=== PATIENT | male | born 1990 | race Caucasian/White ===

== ENCOUNTER 2019-06-02 21:20 | Emergency (ER) | payer OTHER, SELFPAY ==
[2019-06-02 21:34] VITALS: BP 159/101; PULSE 81; RESP 35; TEMP 36.2; O2SAT 100; BMI 27.8
[2019-06-02 22:07] LABS: Acetaminophen < 10 ug/mL (10-30); Alanine Aminotransferase 183 IU/L (<50); Albumin 5.2 g/dL (3.5-5.0); Albumin Globulin Ratio 1.5 (1.0-2.8); Alkaline Phosphatase 128 U/L (38-126); Aspartate Aminotransferase 227 IU/L (17-59); BUN Creatinine Ratio 13.5 (6-22); Bilirubin Total 0.6 mg/dL (0.2-1.3); Blood Urea Nitrogen 12 mg/dL (9-20); Calcium 9.6 mg/dL (8.4-10.2); Carbon Dioxide 19 mmol/L (22-32); Chloride 104 mmol/L (98-107); Estimated Glomerular Filt Rate > 60.0 mL/min (>60); Ethanol (ETOH) 264 mg/dL; Globulin 3.5 g/dL (1.7-4.1); Glucose 106 mg/dL (70-100); HEMOLYSIS < 15 (0-50); Potassium 3.5 mmol/L (3.4-5.1); Sodium 143 mmol/L (137-145); Total Protein 8.7 g/dL (6.3-8.2)
[2019-06-02 22:16] LABS: Add Manual Diff / Slide Review NO; Basophils Absolute Auto 100 /uL (0-100); Basophils Percent Auto 1.9 % (0-2); Eosinophils Absolute Auto 0 /uL (0-450); Eosinophils Percent Auto 0.4 % (2-4); Hematocrit 44.4 % (41-53); Hemoglobin 15.5 g/dL (13.5-17.5); Lymphocytes Absolute Auto 2800 /uL (1100-4500); Lymphocytes Percent Auto 43.7 % (25-40); Mean Corpuscular HGB Conc 34.9 % (30-36); Mean Corpuscular Hemoglobin 33.6 PG (26-34); Mean Corpuscular Volume 96.4 fL (80-100); Monocytes Absolute Auto 900 /uL (0-900); Monocytes Percent Auto 13.7 % (3-14); Neutrophils Absolute Auto 2600 /uL (1500-7000); Neutrophils Percent Auto 40.3 % (50-75); Platelet Count 236 X10^3/uL (150-400); Red Blood Cell Count 4.61 X10^6/uL (4.5-5.9); Red Cell Distribution Width 13.3 % (11.6-14.8); White Blood Cell Count 6.5 X10^3/uL (4.5-11.0)
[2019-06-02 22:25] VITALS: BP 141/95; PULSE 81; RESP 20; O2SAT 100
[2019-06-02 22:34] LABS: Free T4, Direct Thyroxine 1.07 ng/dL (0.78-2.19)
[2019-06-02 22:48] LABS: Thyroid Stimulating Hormone 3.37 uIU/mL (0.47-4.68)
--- NOTE | 2019-06-02 23:05 | ED_ITS ---
HPI - Anxiety General Chief Complaint: Anxiety Stated Complaint: anxiety Time Seen by Provider: 06/02/19 21:50 Source: patient and family Mode of arrival: Family Vehicle Limitations: no limitations History of Present Illness HPI narrative: The patient is agitated, angry upon arrival. He has had alcohol. He has apparently been watching TV, growing increasingly agitated over the bad news about the COVID-19 pandemic. He has had several episodes of syncope. Apparently has been hyperventilating, to the point where he develops perioral numbness, clinching his arms, and then syncope. I ordered a workup on him after arrival, by the time I interviewed him symptoms of much resolved. He has recently been laid off from work because of the COVID economic and social issues. He has no prior history of anxiety. He is on no medications for anxiety or depression. He was seen earlier [facility], with similar complaints. The doctor came to the conclusion he was having anxiety. He is now having syncope. He has not been ill. The family remains isolated. He has had no headache, cough or fever. He denies drug use. He has no psychosis or hallucinations. He has no suicidal thoughts. He has no mental health illness. Related Data Previous Rx's Medication Instructions Recorded lorazepam [Ativan] 1 mg PO Q6H PRN #10 tab 06/02/19 Review of Systems Review of Systems ROS Unobtainable: All systems reviewed & are unremarkable except as noted in HPI and below Constitutional Constitutional: Denies chills, Denies fever(s), Denies headache(s), Denies lethargy and Denies weakness Eyes Eyes: Denies change in vision and Denies eye discharge ENT Ears, Nose, Mouth, and Throat: Denies change in voice, Denies vertigo, Denies dizziness, Denies headache(s), Denies neck pain and Denies sore throat Cardiovascular Cardiovascular: Denies chest pain, Reports syncope, Denies lightheadedness, Denies palpitations, Denies dyspnea, Denies dyspnea on exertion and Denies orthopnea Respiratory Respiratory: Denies cough, Denies dyspnea, Denies dyspnea on exertion and Denies wheezing Gastrointestinal Gastrointestinal: Denies abdominal pain, Denies diarrhea, Denies nausea and Denies vomiting Musculoskeletal Musculoskeletal: Denies neck pain Integumentary/Breasts Skin/Breast: Denies erythema, Denies rash and Denies wounds Neurologic Neurologic: Denies confusion, Denies vertigo, Denies dizziness, Reports syncope, Denies headache(s) and Denies weakness Psychiatric Psychiatric: Denies confusion Endocrine Endocrine: Denies palpitations Allergic/Immunologic Allergic/Immunologic: Denies wheezing Patient History Medical History (Updated 06/03/19 @ 03:04 by Munir Pereyra MD) No history of major surgery within 1 month (Acute) No significant past medical history (Acute) Social History Smoking Status: Current every day smoker Smoking Status: Current every day smoker tobacco type: vaping alcohol intake frequency: 0-2 drinks per day Alcohol type: wine Substance Use Type: does not use Exam Initial Vital Signs Initial Vital Signs: Vital Signs Temperature 97.2 F L 06/02/19 21:34 Pulse Rate 81 06/02/19 21:34 Respiratory Rate 35 H 06/02/19 21:34 Blood Pressure 159/101 H 06/02/19 21:34 Pulse Oximetry 100 06/02/19 21:34 Const General: cooperative and well developed Nutritional Appearance: well nourished [facility] Head: normocephalic and atraumatic Nose: external nose normal Face and sinus: sinuses nontender, face symmetric, no sinus tenderness and No dry mucous membranes Mouth: oral mucosae normal and moist mucous membranes Teeth and gingiva: dentition normal Throat: tonsils normal and uvula midline Eyes General: appearance normal, both eyes and all related structures Eyelids: eyelids normal Conjunctivae: conjunctivae normal Sclera: sclerae normal Pupils: PERRL EOM: EOM intact bilaterally Neck Neck: normal visual inspection, trachea midline, No lymphadenopathy and No midline deformity Thyroid: thyroid normal Lymphatic: No lymphedema Resp Effort & Inspection: normal respiratory effort, able to speak in complete sentences, no respiratory distress and no use of accessory muscles Auscultation: clear to auscultation bilaterally, no rales, no rhonchi and no wheezes Cardio Rate: regular rate Rhythm: regular rhythm Heart Sounds: S1 normal, S2 normal, no click, no gallops, no murmurs and no rubs Pulses: normal peripheral pulses GI Inspection: non-distended Palpation: soft, no hepatosplenomegaly and No tender Auscultation: normal bowel sounds Skin General: no rashes or lesions noted and No mottling Neuro General: alert, oriented x3, gait normal and no focal motor deficits Speech: speech normal Psych Appearance: well kempt Mental Status: mental status grossly normal Mood: congruent mood Attitude: cooperative Thought Content: normal and suicidality Judgment: judgment good Course Course Course Narrative: The patient's attitude has improved significantly since arrival. We had a conversation about however deal with the stresses. I recommended focus on good diet, physical exertion, regular workouts, finding jobs around his home, and frequent discussion with his . He should be re-evaluated if he develops thoughts of self-harm. I will prescribe a a few Ativan tablets to use if necessary. Orders Ordered: ED Orders 06/02/19 21:35 Acetaminophen Stat Complete Blood Count AUTO DIFF Stat Comprehensive Metabolic Panel Stat Ethanol (ETOH) Stat Free T4, Direct Thyroxine Stat Salicylate Stat Thyroid Stimulating Hormone Stat 06/02/19 23:00 Urine Drug Screen, Rapid Stat Discontinued Medications Lorazepam (Ativan) 1 mg PO NOW ONE Stop: 06/02/19 23:56 Last Admin: 06/03/19 00:02 Dose: 1 mg [facility] Vital Signs Vital signs: Vital Signs - 8 hr 06/02/19 21:34 06/02/19 22:25 06/02/19 23:26 Temperature 97.2 F L Pulse Rate 81 81 81 Respiratory Rate 35 H 20 16 Blood Pressure 159/101 H Blood Pressure [Right Arm] 141/95 H 133/91 H Pulse Oximetry 100 100 99 MDM - Anxiety Medical Records Attestation: I reviewed the patient's medical records. Lab Data Attestation: I reviewed the patient's lab results. Result diagrams: 06/02/19 21:35 06/02/19 21:35 Labs: Lab Results 06/02/19 06/02/19 06/02/19 Range/Units 21:35 21:35 21:35 WBC 6.5 (4.5-11.0) X10^3/uL RBC 4.61 (4.5-5.9) X10^6/uL Hgb 15.5 (13.5-17.5) g/dL Hct 44.4 (41-53) % MCV 96.4 (80-100) fL MCH 33.6 (26-34) PG MCHC 34.9 (30-36) % RDW 13.3 (11.6-14.8) % Plt Count 236 (150-400) X10^3/uL Neut % (Auto) 40.3 L (50-75) % Lymph % (Auto) 43.7 H (25-40) % [place] % (Auto) 13.7 (3-14) % Eos % (Auto) 0.4 L (2-4) % Baso % (Auto) 1.9 (0-2) % Neut # (Auto) 2600 (4075-8801) /uL Lymph # (Auto) 2800 (3811-9757) /uL [place] # (Auto) 900 (0-900) /uL Eos # (Auto) 0 (0-450) /uL Baso # (Auto) 100 (0-100) /uL Sodium 143 (137-145) mmol/L Potassium 3.5 (3.4-5.1) mmol/L Chloride 104 (98-107) mmol/L Carbon Dioxide 19 L (22-32) mmol/L BUN 12 (9-20) mg/dL Creatinine 0.89 (0.66-1.25) mg/dL Estimated GFR > 60.0 (>60) mL/min BUN/Creatinine Ratio 13.5 (6-22) Glucose 106 H (70-100) mg/dL Calcium 9.6 (8.4-10.2) mg/dL Total Bilirubin 0.6 (0.2-1.3) mg/dL AST 227 H (17-59) IU/L ALT 183 H (<50) IU/L Alkaline Phosphatase 128 H (38-126) U/L Total Protein 8.7 H (6.3-8.2) g/dL Albumin 5.2 H (3.5-5.0) g/dL Globulin 3.5 (1.7-4.1) g/dL Albumin/Globulin Ratio 1.5 (1.0-2.8) TSH 3.37 (0.47-4.68) uIU/mL Free T4 1.07 (0.78-2.19) ng/dL Salicylates 1.0 (<20) mg/dL U Opiates 300ng/mL cut (Negative) Ur Oxycodone Screen (Negative) Urine Methadone Screen (Negative) Acetaminophen < 10 L (10-30) ug/mL Ur Barbiturates Screen (Negative) U Tricyclic Antidepress (Negative) Ur Phencyclidine Scrn (Negative) Ur Amphetamines Screen (Negative) U Methamphetamines Scrn (Negative) Ur MDMA Scrn (Ecstasy) (Negative) U Benzodiazepines Scrn (Negative) Urine Cocaine Screen (Negative) U Marijuana (THC) Screen (Negative) Ethyl Alcohol 264 H ( - 10) mg/dL 06/02/19 Range/Units 23:00 WBC (4.5-11.0) X10^3/uL RBC (4.5-5.9) X10^6/uL Hgb (13.5-17.5) g/dL Hct (41-53) % MCV (80-100) fL MCH (26-34) PG MCHC (30-36) % RDW (11.6-14.8) % Plt Count (150-400) X10^3/uL Neut % (Auto) (50-75) % Lymph % (Auto) (25-40) % [place] % (Auto) (3-14) % Eos % (Auto) (2-4) % Baso % (Auto) (0-2) % Neut # (Auto) (9366-2572) /uL Lymph # (Auto) (5451-1528) /uL [place] # (Auto) (0-900) /uL Eos # (Auto) (0-450) /uL Baso # (Auto) (0-100) /uL Sodium (137-145) mmol/L Potassium (3.4-5.1) mmol/L Chloride (98-107) mmol/L Carbon Dioxide (22-32) mmol/L BUN (9-20) mg/dL Creatinine (0.66-1.25) mg/dL Estimated GFR (>60) mL/min BUN/Creatinine Ratio (6-22) Glucose (70-100) mg/dL Calcium (8.4-10.2) mg/dL Total Bilirubin (0.2-1.3) mg/dL AST (17-59) IU/L ALT (<50) IU/L Alkaline Phosphatase (38-126) U/L Total Protein (6.3-8.2) g/dL Albumin (3.5-5.0) g/dL Globulin (1.7-4.1) g/dL Albumin/Globulin Ratio (1.0-2.8) TSH (0.47-4.68) uIU/mL Free T4 (0.78-2.19) ng/dL Salicylates (<20) mg/dL U Opiates 300ng/mL cut Negative (Negative) Ur Oxycodone Screen Negative (Negative) Urine Methadone Screen Negative (Negative) Acetaminophen (10-30) ug/mL Ur Barbiturates Screen Negative (Negative) U Tricyclic Antidepress Negative (Negative) Ur Phencyclidine Scrn Negative (Negative) Ur Amphetamines Screen Negative (Negative) U Methamphetamines Scrn Negative (Negative) Ur MDMA Scrn (Ecstasy) Negative (Negative) U Benzodiazepines Scrn Negative (Negative) Urine Cocaine Screen Negative (Negative) U Marijuana (THC) Screen Negative (Negative) Ethyl Alcohol ( - 10) mg/dL Urine Dip Bedside Urine Glucose Negative Bedside Urine Bilirubin - Negative Bedside Urine Ketone ++ 40 Urine Specific [place] 1.020 Bedside Urine Occult Blood - Negative Bedside Urine pH 6.0 Bedside Urine Protein + 30 Bedside Urine Urobilinogen - Negative Bedside Urine Nitrite - Negative Bedside Urine Leukocytes - Negative Esterase ECG Data Attestation: I personally reviewed and interpreted this ECG as follows: (Normal sinus rhythm rate 83 beats per minute. Normal intervals. No ectopy. Motion artifact. No acute findings.) Discharge Plan Departure Patient Disposition: Home Clinical Impression: Acute anxiety Discharge Date/Time: 06/02/19 23:59 Instructions: DI for Anxiety -- Adult Activity Restrictions/Additional Instructions: Ativan 1 mg every 6-8 hours as needed for anxiety. Be sure you have good nutrition, drink plenty of water. Exercise regularly as we discussed. Make you self busy doing house chores, own chores, playing with your son. Avoid saturating herself with the concerning news that is present everywhere. Read, but read more than the news. Talk with your frequently. If she is thinking your behavior is excessive, or make suggestions of ways to keep we do self busy, listen to her as the 2nd voice as we discussed. Return here as needed. Prescriptions: New lorazepam [Ativan] 1 mg tablet 1 mg PO Q6H PRN (Reason: agitation) Qty: 10 RF: 0
[2019-06-02 23:15] LABS: UR Morphine/Opiate cutoff 300 Negative (Negative); Ur Creatinine 50 (Normal); Ur Specific Gravity 1.025 (Normal); Urine Amphetamines Negative (Negative); Urine Barbiturates Negative (Negative); Urine Cocaine Negative (Negative); Urine MDMA Negative (Negative); Urine Methamphetamines Negative (Negative); Urine Phencyclidine Negative (Negative); Urine Tetrahydrocannabinol Negative (Negative); Urine pH 6 (Normal)
[2019-06-02 23:16] LABS: Urine Benzodiazepines Negative (Negative); Urine Methadone Negative (Negative); Urine Oxycodone Negative (Negative); Urine Tricyclic Antidepressant Negative (Negative)
[2019-06-02 23:26] VITALS: BP 133/91; PULSE 81; RESP 16; O2SAT 99
[2019-06-03] MEDS: LORazepam 0.5 MG TABLET 1 MG PO (00:02)
--- NOTE | 2019-06-03 00:18 | PC.NURSE ---
PT arrives anxious, tSpouse reports pt was seen 2 days ago at [facility] with anxiety. was taken there by medics. States today patient starting at 1700 has had multiple episodes of unresponsiveness for anywhere from 20-45 seconds. when comes to pt startes hyperventalating and paranoid. refusing to answer questions. Spouse in room to try and calm pt. down.
== END 2019-06-02 23:59 | disposition home or self-care (01) ==
PROVIDERS: Emergency Provider Emergency Medicine
DX: F41.9 Anxiety disorder, unspecified (principal); F43.0 Acute stress reaction; Y90.8 Blood alcohol level of 240 mg/100 ml or more
CPT/HCPCS: 36415; 80053; 80305; 80320; 80329; 81003; 84439; 84443; 85025; 93005; 99284; G0480